=== PATIENT | male | born 1965 | race Caucasian/White ===

== ENCOUNTER 2019-08-30 05:10 | Day surgery (SDC) | payer MEDICAID, OTHER ==
[~2019-08-30] VITALS: Ht 182.9 cm; Wt 110.0 kg
[~2019-08-30 05:10] MED LIST: SODIUM CHLORIDE 0.9% 1,000 ML ONE
[2019-08-30] MEDS ORDERED: LIDOCAINE 2% 5 ML JELLY TP ONE (05:11)
[2019-08-30] MEDS ORDERED: BENZOCAINE 20% 50 MCG/SPRAY 57 GM TP ONE (05:11)
[2019-08-30] MEDS ORDERED: ALBUTEROL SULFATE 2.5 MG/0.5 ML NEB SOLUTION NEB ONE (05:11)
[2019-08-30] MEDS ORDERED: LIDOCAINE 4% 50 ML SOLUTION TP ONE (05:11)
[2019-08-30] MEDS ORDERED: BACL20TA PO (06:07)
[2019-08-30] MEDS ORDERED: METO50 PO (06:07)
[2019-08-30] MEDS ORDERED: NAPR-1142 PO (06:07)
[2019-08-30] MEDS ORDERED: MULT1TAB70 PO (06:07)
[2019-08-30] MEDS ORDERED: CYAN50008 PO (06:07)
[2019-08-30] MEDS ORDERED: ASPI-1182 PO (06:07)
[2019-08-30] MEDS ORDERED: CETI10TA58 PO (06:07)
[2019-08-30] MEDS ORDERED: INSU100V36 SQ (06:07)
[2019-08-30] MEDS ORDERED: GABA-533 PO (06:07)
[2019-08-30] MEDS ORDERED: METF-960 PO (06:07)
[2019-08-30] MEDS ORDERED: OMEP20CA12 PO (06:07)
[2019-08-30] MEDS ORDERED: BENZ-51 PO (06:07)
[2019-08-30] MEDS ORDERED: ATOR40TA28 PO (06:07)
[2019-08-30] MEDS ORDERED: FAMO20 PO (06:07)
[2019-08-30] MEDS ORDERED: SUCR1TAB PO (06:07)
[2019-08-30 06:17] LABS: GLUCOMETER DEV NAME(LOC) SDS.; GLUCOSE,POINT OF CARE 169 MG/DL (70-110)
[2019-08-30] MEDS ORDERED: SODIUM CHLORIDE 0.9% 1,000 ML IV ONE (06:30)
[2019-08-30] MEDS ORDERED: FentaNYL CITRATE-PF 100 MCG/2 ML VIAL ONE (08:01)
[2019-08-30] MEDS ORDERED: MIDAZOLAM HCL 2 MG/2 ML VIAL ONE (08:01)
[2019-08-30] MEDS ORDERED: MethylPREDNISolone SOD SUCC 125 MG/2 ML VIAL IVP ONE (08:30)
[2019-08-30] MEDS ORDERED: OXYGEN THERAPY IH SCH (20:00)
== END 2019-08-30 10:05 | disposition home or self-care (01) ==
LOC: SURGERY 05:10
PROVIDERS: ATTEND Internal Medicine Critical Care Medicine
DX: R05 Cough (principal); R91.1 Solitary pulmonary nodule; J34.89 Other specified disorders of nose and nasal sinuses; J98.8 Other specified respiratory disorders; J38.4 Edema of larynx; B37.0 Candidal stomatitis; Z79.899 Other long term (current) drug therapy
CPT/HCPCS: 31623; 31624; 71045; 82962; 87015; 87070; 87101; 87205; 87206; 87220; 88108; 88312; 93005; J2250; J2930; J3010; J7030